=== PATIENT | female | born 1995 | race Hispanic/Latino ===

== ENCOUNTER 2020-03-03 12:32 | Emergency (ER) | payer BC, OTHER ==
[2020-03-03] MEDS ORDERED: KETOROLAC 30MG VIAL (30MG/ML) ONE (13:19)
== END 2020-03-03 13:27 | disposition home or self-care (01) ==
LOC: EDH 12:32
DX: M54.32 Sciatica, left side (principal)
CPT/HCPCS: 72100; 96372; 99283; J1885